=== PATIENT | male | born 1935 | race Caucasian/White ===

== ENCOUNTER 2022-08-09 05:53 | Emergency (ER) | payer MEDICARE ==
[2022-08-09] MEDS ORDERED: Oxymetazoline HCl 0.05% ( 15 ML ) ONE (06:02)
== END 2022-08-09 06:47 | disposition home or self-care (01) ==
LOC: CSHERS 05:53
DX: R04.0 Epistaxis (principal); Z86.73 Personal history of transient ischemic attack (TIA), and cerebral infarction without residual deficits; E78.00 Pure hypercholesterolemia, unspecified; Z79.899 Other long term (current) drug therapy
CPT/HCPCS: 30901